=== PATIENT | female | born 1995 | race Caucasian/White ===

== ENCOUNTER 2018-03-13 20:05 | Emergency (ER) | payer BC, MEDICAID, SELFPAY ==
[2018-03-13 20:07] VITALS: BP 135/70; PULSE 77; RESP 15; TEMP 36.5; O2SAT 100; BMI 24.0
--- NOTE | 2018-03-13 20:25 | RAD_ITS ---
STUDY: X-RAY CHEST REASON FOR EXAM: Female, 22 years old. Chest pain. Cold symptoms. TECHNIQUE: PA and lateral views of the chest. COMPARISON: None. FINDINGS: The lungs are clear and expanded. There is no demonstrated pleural abnormality. Normal size heart. Normal mediastinum and jean marie. Normal visualized pulmonary arteries. Normal visualized aortic arch and descending thoracic aorta. Normal visualized thoracic spine. Normal visualized ribs, clavicles, and shoulders. There is no demonstrated abnormality of the visualized soft tissue structures of the upper abdomen. RAD/Chest PA and Lateral IMPRESSION: Normal x-ray examination of the chest. Electronically Signed: Alexandro Schmidt MD at 20:55 EDT , Service support ,
[2018-03-13] MEDS: Ibuprofen 600 MG Tablet PO (20:36)
--- NOTE | 2018-03-13 21:18 | ED.VISSUMM ---
- ER Visit Summary Date of Service: 03/13/18 Chief Complaint: Ear pain, sore throat History of Present Illness: The patient is a 22 F presents to the emergency department with ear pain sore throat. Patient symptoms began about 3 days ago. She states he had pain in both ears. Since then, she had a worsening sore throat. She denies any cough. She has had fevers and chills. She denies any voice change. She does describe tender adenopathy in the neck. She is also had some pain with palpation over the sternum. She has had history of strep and states this feels similar. Physical Examination: Vital signs reviewed General: Well-nourished, well-developed Head: Normocephalic, atraumatic Eyes: Pupils equal and reactive, extraocular muscles intact ENT: Ears have mild erythema, but no distortion of the landmarks. Posterior oropharynx is exudate on bilateral tonsils. Uvula midline. No evidence of retropharyngeal peritonsillar abscess. Neck, supple, anterior lymphadenopathy Heart: Regular rate and rhythm Respiratory: No distress, clear bilaterally Abdomen: Soft, nontender, nondistended, no peritoneal signs Back: Nontender Extremities: Nontender, no edema, no cords Skin: Normal color no rash Neuro: Alert and oriented, no focal or lateralizing deficits Test Results: [] Emergency Department Course and Treatment: The patient symptoms do seem consistent with a strep pharyngitis. Rapid strep was obtained which was negative. However, given her exudates, adenopathy, and fever am going to treat her pending results of the culture. I did obtain an x-ray which was unremarkable. The patient was counseled on concerning symptoms and reasons to return. She will be discharged home. Treatment Plan: [] Disposition: Discharge Impression: Exudative pharyngitis This note was generated with [employer] dictation software. It may contain incorrect words, spelling, and punctuation that were not noted in review of the chart prior to signing ED Disposition - Plan for ED Patient: Chief Complaint: Cold Sx Instructions: ED Strep Pharyngitis Poss Prescriptions: Amox/Clavulanate Tablet [Augmentin Tablet] 875 mg PO Q12H #20 tab Referrals: Grady Oden MD [Primary Care Provider] -
[2018-03-13] MEDS: Amox/Clavulanate 875 MG Tablet PO (21:26)
== END 2018-03-13 21:28 | disposition home or self-care (01) ==
PROVIDERS: Emergency Provider Emergency Medicine; Family Provider Family Medicine; PCP Family Medicine
DX: J02.9 Acute pharyngitis, unspecified (principal); H92.03 Otalgia, bilateral
CPT/HCPCS: 71046; 87880; 99283

== ENCOUNTER 2018-03-25 23:07 | Emergency (ER) | payer BC, MEDICAID, SELFPAY ==
[2018-03-25 23:09] VITALS: BP 132/69; PULSE 83; RESP 14; TEMP 37.2; O2SAT 98; BMI 24.3
[2018-03-25 23:45] LABS: Mucous, Urine 0 SEEN /hpf (<or=2+); Red Blood Cells-Urine 0 SEEN /hpf (0-5)
[2018-03-25] MEDS: Ondansetron 4 MG/2 ML Vial IV (23:46)
[2018-03-25] MEDS: Ketorolac 30 MG/ML Syringe IV (23:47)
[2018-03-25] MEDS: 0.9% Normal Saline 1,000 ML 1000 ML IV (23:49)
[2018-03-25 23:50] LABS: Internal QC Validated? YES +Cl - CLEAR BKGD; Pregnancy, Urine Negative Negative
[2018-03-25 23:57] LABS: Color, Urine Yellow (Yellow); Glucose, Dipstick Normal (Normal); Ketone-Dipstick Negative (Negative); Leukocyte Esterase-Dipstick 25 /ul (Negative); Nitrite-Dipstick Negative (Negative); Occult Blood-Urine Negative /ul (Negative); Protein-Dipstick Negative (Negative); Urine Bilirubin Dipstick Negative (Negative); Urine Clarity Sl. Cloudy (Clear); Urine Urobilinogen Normal (Normal)
[2018-03-25 23:59] LABS: Absolute Lymphocyte Count 2.29 X10^3/ul (0.83-4.51); Absolute Neutrophil Count 3.6 X10^3/uL (2.0-7.7); Bacteria RARE /hpf (None Seen); Basophil# 0.07 X10^3/uL; Eosinophil# 0.14 X10^3/uL; Hematocrit 39.4 % (37-47); Hemoglobin 13.5 g/dl (12.0-15.0); Lymphocyte # 2.29 X10^3/ul (4.0); Lymphocyte % 33.5 % (19-41); Mean Corp Hgb Conc 34.3 g/gl (32-36); Mean Corpuscular Hgb 30.6 pg (27.0-32.0); Mean Corpuscular Volume 89.3 fL (81-99); Monocyte% 10.2 % (0-10); Neutrophil # 3.63 X10^3/uL (2.7-7.7); Neutrophil % 53.2 % (47-70); Platelet Count 331 K/mm3 (150-450); RBC Distribution Width CV 12.1 % (11.6-14.6); Red Blood Count 4.41 M/mm3 (4.2-5.4); Squamous Epithelial Cells - UA 5-10 SEEN /hpf (5-10); White Blood Cells 5-10 SEEN /hpf (0-5); White Blood Count 6.8 K/mm3 (4.4-11.0)
[2018-03-26 00:01] LABS: POSITIVE COUNT NO; POSITIVE DIFFERENTIAL NO; POSITIVE MORPHOLOGY NO
[2018-03-26 00:09] LABS: AST(SGOT) 15 U/L (15-37); Alanine Aminotransfer ALT/SGPT 25 U/L (13-56); Alkaline Phosphatase 93 U/L (45-117); Anion Gap 7 (5-15); BUN 13 mg/dL (7-18); Calcium,Total 8.7 mg/dL (8.5-10.1); Chloride 106 mmol/L (98-107); EST Glomerular Filtration Rate 73 mL/min (>60); Est Glom Filt Rate - Afr Amer 88 mL/min (>60); Glucose 89 mg/dL (74-106); Lipase 169 U/L (73-393); Potassium 3.9 mmol/L (3.5-5.1); Sodium Level 141 mmol/L (136-145)
[2018-03-26 00:12] VITALS: PULSE 88; RESP 16; O2SAT 98
--- NOTE | 2018-03-26 00:26 | ED.DCSUM_ITS ---
- ER Visit Summary Date of Service: 03/26/18 Chief Complaint: Abdominal and flank pain. History of Present Illness: The patient is a 22 F who presents with abdominal pain. She initially was complaining of urinary frequency and urgency. She went to an urgent care. The checked her urine and she was diagnosed with a possible UTI and started on Bactrim. However since that time she has developed right upper quadrant pain suprapubic abdominal pain and left flank and CVA pain. She vomited once at home. No diarrhea. No constipation. No fevers. No cough chest pain trouble breathing. Physical Examination: Afebrile vitals unremarkable Moist mucous membranes Heart regular rate and rhythm Lungs are clear Abdomen soft nondistended she does have some diffuse nonfocal tenderness without guarding or rebound Left CVA tenderness Test Results: CBC CMP lipase urinalysis and are all unremarkable. Emergency Department Course and Treatment: She was treated with IV fluids and Toradol. On reevaluation she is resting comfortably. She is still complaining of discomfort but a repeat abdominal examination is benign no guarding no rebound no reproducible tenderness. I explained to her that she does not appear to have any life-threatening or acute surgical pathology. I discussed further outpatient evaluation including possible studies such as right upper quadrant ultrasound given that she does have some right upper quadrant tenderness. I do not believe that she has acute cholecystitis based on her physical exam and laboratory findings. However she was given good return precautions on specific signs and symptoms to monitor for and conditions which should prompt return here to the emergency department for reevaluation. She was advised to follow-up with her primary care physician. Treatment Plan: [] Disposition: Discharge Impression: Abdominal pain This note was generated with [employer] dictation software. It may contain incorrect words, spelling, and punctuation that were not noted in review of the chart prior to signing ED Disposition - Plan for ED Patient: Chief Complaint: Flank Pain Referrals: Grady Oden MD [Primary Care Provider] -
--- NOTE | 2018-03-26 00:26 | ED.DEP ---
ED Disposition - Plan for ED Patient: Chief Complaint: Flank Pain Instructions: ED Abdominal Pain Unkn Cause Referrals: Grady Oden MD [Primary Care Provider] -
[2018-03-26 00:34] VITALS: BP 115/78; PULSE 87; RESP 16; O2SAT 99
== END 2018-03-26 00:36 | disposition home or self-care (01) ==
LOC: ED 23:34
PROVIDERS: Emergency Provider Emergency Medicine; Family Provider Family Medicine; PCP Family Medicine
DX: R10.9 Unspecified abdominal pain (principal)
CPT/HCPCS: 80053; 81001; 81025; 83690; 85025; 96361; 96374; 96375; 99283; J7030; A4216; J2405

== ENCOUNTER 2018-06-07 21:29 | Emergency (ER) | payer BC, MEDICAID, SELFPAY ==
[2018-06-07 21:29] VITALS: BP 141/79; PULSE 88; RESP 16; TEMP 36.5; O2SAT 100; BMI 22.4
--- NOTE | 2018-06-07 21:56 | ED.DCSUM_ITS ---
- ER Visit Summary Date of Service: 06/07/18 Chief Complaint: [] Back pain since yesterday vaginal spotting History of Present Illness: The patient is a 23 F [] no history of reports that she is about 1 month late for her. 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 she had no morning sickness or breast soreness Ovarian cysts were treated with nonsteroidals Physical Examination: [] Total signs are within normal range General, no distress resting comfortably HEENT is generally unremarkable The neck is supple no adenopathy Cardiovascular, regular rate and rhythm Lungs, clear bilateral Abdomen, soft vague nonspecific discomfort to the right and left suprapubic area there is no rebound guarding organomegaly her back is unremarkable, upper and lower extremities are normal Extremities, no clubbing cyanosis or edema Neurologic, awake alert answering questions appropriately moving all 4 extremities Does not wish to have a E[employer] pelvic exam she indicates she has had basically tiny spots of blood only she has no vaginal discharge Test Results: [] Emergency Department Course and Treatment: [] In all the above screening labs are obtained hCG UA , labs are unremarkable except her hCG returned positive, her quant is 405, pelvic ultrasound is ordered I explained all the above to her we discussed the long differential including ectopic threatened AB early p regnancy etc. she understands the need for the ultrasound to help delineate all the above and that there is any signs of ectopic she will require admission and evaluation tonight by [facility]IP SECRETARY otherwise she will be referred to MEMBERSHIP SECRETARY, she is feeling better after being medicated receiving IV fluids, at this time I turned over her care to the evening physicians who will check the ultrasound reports and determine her disposition but the plan will be as above Treatment Plan: [] Disposition: [] Pending ultrasound Impression: [] Pelvic pain, vaginal bleeding evaluation for ectopic underway This note was generated with [employer] software. It may contain incorrect words, spelling, and punctuation that were not noted in review of the chart prior to signing ED Disposition - Plan for ED Patient: Chief Complaint: Abd Pain Referrals: Grady Oden MD [Primary Care Provider] -
[2018-06-07 22:01] LABS: Bacteria 0 SEEN /hpf (None Seen); Mucous, Urine 0 SEEN /hpf (<or=2+); Red Blood Cells-Urine 0 SEEN /hpf (0-5)
[2018-06-07 22:03] LABS: Color, Urine Straw (Yellow); Glucose, Dipstick Normal (Normal); Ketone-Dipstick Negative (Negative); Leukocyte Esterase-Dipstick Negative /ul (Negative); Nitrite-Dipstick Negative (Negative); Occult Blood-Urine Negative /ul (Negative); Protein-Dipstick Negative (Negative); Urine Bilirubin Dipstick Negative (Negative); Urine Clarity Clear (Clear); Urine Urobilinogen Normal (Normal)
[2018-06-07] MEDS: morphine 8 MG/ML Syringe IV (22:10)
[2018-06-07] MEDS: 0.9% Normal Saline 1,000 ML 1000 ML IV (22:10)
[2018-06-07] MEDS: Ondansetron 4 MG/2 ML Vial IV (22:10)
[2018-06-07 22:17] LABS: Absolute Lymphocyte Count 1.89 X10^3/ul (0.83-4.51); Absolute Neutrophil Count 7.2 X10^3/uL (2.0-7.7); Basophil# 0.03 X10^3/uL; Basophil% 0.3 % (0-1); Eosinophil# 0.07 X10^3/uL; Eosinophils% 0.7 % (0-5); Hematocrit 35.5 % (37-47); Hemoglobin 12.1 g/dl (12.0-15.0); Lymphocyte # 1.89 X10^3/ul (4.0); Lymphocyte % 18.8 % (19-41); Mean Corp Hgb Conc 34.1 g/gl (32-36); Mean Corpuscular Volume 88.1 fL (81-99); Mean Platelet Vol. 10.1 fl (6.2-12.0); Monocyte# 0.86 X10^3/uL; Monocyte% 8.6 % (0-10); Neutrophil # 7.16 X10^3/uL (2.7-7.7); Neutrophil % 71.4 % (47-70); Platelet Count 273 K/mm3 (150-450); RBC Distribution Width CV 12.4 % (11.6-14.6); RBC Distribution Width SD 39.8 fl (35.1-43.9); Red Blood Count 4.03 M/mm3 (4.2-5.4)
[2018-06-07 22:19] LABS: POSITIVE COUNT NO; POSITIVE DIFFERENTIAL NO; POSITIVE MORPHOLOGY NO
[2018-06-07 22:28] LABS: Anion Gap 8 (5-15); BUN 10 mg/dL (7-18); BUN/Creat Ratio 11.9 RATIO (10-20); Calcium,Total 8.8 mg/dL (8.5-10.1); Chloride 106 mmol/L (98-107); Creatinine, Serum 0.84 mg/dL (0.55-1.02); EST Glomerular Filtration Rate 89 mL/min (>60); Est Glom Filt Rate - Afr Amer 108 mL/min (>60); Estimated Creatinine Clearance 93.73 ml/min; Glucose 100 mg/dL (74-106); Potassium 3.5 mmol/L (3.5-5.1); Sodium Level 138 mmol/L (136-145)
[2018-06-07 22:37] LABS: Squamous Epithelial Cells - UA 0-5 SEEN /hpf (5-10)
[2018-06-07 22:38] LABS: Transitional Epithelial - Ur 0-5 SEEN /hpf (0-5)
[2018-06-07 22:40] LABS: White Blood Cells 0-5 SEEN /hpf (0-5)
[2018-06-07 23:00] LABS: Pregnancy, Serum, hCG Quali. POSITIVE Negative (0-9 Nonpreg)
--- NOTE | 2018-06-07 23:01 | US_ITS ---
HISTORY: Pelvic pain. Positive hCG LMP: Unknown Beta-hCG: Unknown TECHNIQUE: Transvaginal pelvic ultrasound was performed. COMPARISON: None FINDINGS: The uterus measures 8.5 x 4.2 x 5.5 cm in longitudinal, AP, and transverse dimensions. The anterior endometrium at the mid uterine body shows a 2.5 mm small cystic focus, possible early gestational sac or a pseudo-sac. Elsewhere, the endometrium is uniform and measures up to 11 mm in diameter. The myometrium shows homogenous echotexture. Both ovaries are identified and appear normal in size with the right measuring 2.3 x 2.2 x 1.8 cm and left measuring 2.1 x 1.2 x 1.5 cm. Bilateral ovarian blood flow and subcentimeter follicles. No free pelvic fluid. US/Transvaginal w/Preg US IMPRESSION: 1. Possible early intrauterine gestational sac, less than 5 weeks gestational age. Recommend follow-up to confirm viability. 2. No free fluid or suspicious adnexal lesion. at 0128 Reported and signed by: Silviano Uribe MD Electronically Signed: Silviano Uribe, at 1:27 EST Tel , Service support ,
[2018-06-07 23:09] LABS: hCG Titer Quant., Serum 405 mIU/mL (<9 non-preg)
--- NOTE | 2018-06-07 23:23 | ED.DEP ---
ED Disposition - Plan for ED Patient: Chief Complaint: Abd Pain Instructions: ED Abdominal Pain Rule Out Ectopic Prescriptions: Hydrocodone Bitart/Apap 5-325 [[place] 5MG-325MG] 1 tab PO Q4H PRN PRN 2 Days #10 tab PRN Reason: Pain Referrals: Grady Oden MD [Primary Care Provider] - Amee Ivey MD [STAFF PHYSICIAN] -
--- NOTE | 2018-06-07 23:27 | DCINST.ED_ITS ---
ED Disposition - Plan for ED Patient: Chief Complaint: Abd Pain Instructions: ED Abdominal Pain Rule Out Ectopic Prescriptions: Hydrocodone Bitart/Apap 5-325 [[place] 5MG-325MG] 1 tab PO Q4H PRN PRN 2 Days #10 tab PRN Reason: Pain Referrals: Grady Oden MD [Primary Care Provider] - Amee Ivey MD [STAFF PHYSICIAN] -
[2018-06-07 23:35] LABS: Chlamydia Trachomatis by PCR Negative (Negative); Neisserai gonorrhoeae by PCR Negative (Negative); Probe Check PASS; Sample Adequacy Control PASS; Specimen Processing Control PASS
[2018-06-08] MEDS: morphine 8 MG/ML Syringe IV (01:03)
[2018-06-08] MEDS: proMETHazine 25 MG/ML Syringe 12.5 MG IV (02:16)
[2018-06-08 02:23] VITALS: BP 130/72; PULSE 78; RESP 16; O2SAT 98
[2018-06-08 02:31] VITALS: BP 130/72; PULSE 78; RESP 16; O2SAT 98
== END 2018-06-08 02:32 | disposition home or self-care (01) ==
LOC: ED 22:06
PROVIDERS: Emergency Provider Emergency Medicine; Family Provider Family Medicine; PCP Family Medicine
DX: R10.2 Pelvic and perineal pain (principal); N93.9 Abnormal uterine and vaginal bleeding, unspecified; Z32.01 Encounter for pregnancy test, result positive
CPT/HCPCS: 76817; 80048; 81001; 84702; 84703; 85025; 86900; 86901; 87491; 87591; 96361; 96374; 96375; 96376; 99282; J7030; A4216; J2405